=== PATIENT | female | born 1960 | race Caucasian/White ===

== ENCOUNTER 2017-10-10 15:53 | Emergency (ER) | payer MEDICAID ==
[~2017-10-10] VITALS: Ht 160 cm; Wt 81.6 kg
[~2017-10-10 15:53] MED LIST: LORA10TA7 PO
--- NOTE | 2017-10-10 23:13 | NUR ---
PT REPORTS FEELING "ACHEY ALL OVER" W/ COUGH/CONGESTION X3 DAYS
--- NOTE | 2017-10-11 01:07 | NUR ---
Pt seen by Dr. Fair. Pt stable for discharge per MD. Pt given ACI. Pt verbalized understanding of dc instructions. Pt ambulated out of ER with steady gait.
[2017-10-11 01:09] VITALS: BP 124/65
== END 2017-10-11 01:11 | disposition home or self-care (01) ==
LOC: ER 15:54
DX: J06.9 Acute upper respiratory infection, unspecified (principal); Z88.6 Allergy status to analgesic agent
CPT/HCPCS: A4663

== ENCOUNTER 2018-02-04 19:25 | Emergency (ER) | payer MEDICAID ==
[~2018-02-04] VITALS: Ht 152.4 cm; Wt 123.4 kg
--- NOTE | 2018-02-04 21:36 | NUR ---
DR. MACE AT BEDSIDE FOR MSE.
--- NOTE | 2018-02-04 21:50 | NUR ---
PT COMES TO ER W C/O NECK PAIN THAT STARTED TODAY. PT DENIES SOB/COUGH/CONGESTION. PT DENIES HEADACHE. PT DENIES CHEST PAIN.
--- NOTE | 2018-02-04 22:30 | NUR ---
PT RESTING COMFORTABLY IN BED WITH EYES CLOSED. NO ACUTE DISTRESS NOTED. VSS. AWAITING TEST RESULTS.
[2018-02-04 23:41] VITALS: BP 147/94
--- NOTE | 2018-02-04 23:42 | NUR ---
Patient discharged to home in stable conditon. Written and verbal after care instructions given. Patient verbalizes understanding of instructions. Patient left ER and walks in steady gait. VSS. No distress noted.
== END 2018-02-04 23:43 | disposition home or self-care (01) ==
LOC: ER 19:28
DX: K11.20 Sialoadenitis, unspecified (principal); Z88.6 Allergy status to analgesic agent; Z88.8 Allergy status to other drugs, medicaments and biological substances; Z79.899 Other long term (current) drug therapy
CPT/HCPCS: 70490; A4663

== ENCOUNTER 2019-08-29 20:36 | Emergency (ER) | payer MEDICAID ==
[~2019-08-29] VITALS: Ht 165.1 cm; Wt 103.9 kg
--- NOTE | 2019-08-29 20:44 | NUR ---
Dr. Adams at bedside for MSE.
[2019-08-29] MEDS ORDERED: LORAZEPAM 1 MG TABLET ONE (20:50)
--- NOTE | 2019-08-29 20:56 | NUR ---
Xray at bedside.
[2019-08-29] MEDS: LORAZEPAM 0.5 MG TABLET PO ONE (21:04)
[2019-08-29 21:26] LABS: BASOPHILS % (AUTO) 0.5 % (0.0-2.0); EOSINOPHILS # (AUTO) 0.1 K/uL (0.0-0.7); EOSINOPHILS % (AUTO) 0.9 % (0.0-7.0); HEMATOCRIT 40.6 % (37-47); HEMOGLOBIN 13.8 G/DL (12.0-16.0); LYMPHOCYTES # (AUTO) 3.8 K/UL (0.8-4.8); LYMPHOCYTES % (AUTO) 42.8 % (20.5-51.5); MEAN CORPUSCULAR HEMOGLOBIN 31.5 UUG (27.0-31.0); MEAN CORPUSCULAR HGB CONC 34 g/dL (32.0-37.0); MEAN CORPUSCULAR VOLUME 93.1 FL (81.0-99.0); MONOCYTES # (AUTO) 0.6 K/UL (0.1-1.30); MONOCYTES % (AUTO) 6.3 % (0.0-11.0); NEUTROPHILS # (AUTO) 4.4 K/UL (1.8-8.9); NEUTROPHILS % (AUTO) 49.5 % (38.5-71.5); PLATELET COUNT (AUTO) 313 K/UL (150-450); RED BLOOD CELL COUNT(AUTO) 4.36 MIL/UL (4.2-5.4)
--- NOTE | 2019-08-29 21:26 | NUR ---
Pt states she is feeling better.
[2019-08-29 21:51] LABS: BILIRUBIN,DIRECT 0.1 mg/dL (0.0-0.2); BILIRUBIN,TOTAL 0.3 mg/dL (0.1-1.0); CREATININE 0.8 mg/dL (0.6-1.3); POTASSIUM 3.9 mmol/L (3.5-5.1)
[2019-08-29 21:52] LABS: TOTAL PROTEIN, SERUM 8.1 g/dL (6.4-8.2)
--- NOTE | 2019-08-29 22:57 | NUR ---
Patient discharged to home in stable conditon. Written and verbal after care instructions given. Patient verbalizes understanding of instructions. Pt ambulated out of ER with steady gait, no acute signs of distress, VSS, all belongings taken.
[2019-08-29 23:00] VITALS: BP 138/91
== END 2019-08-29 23:01 | disposition home or self-care (01) ==
LOC: ER 20:36
DX: F41.9 Anxiety disorder, unspecified (principal); F41.0 Panic disorder [episodic paroxysmal anxiety]; Z88.6 Allergy status to analgesic agent; Z88.8 Allergy status to other drugs, medicaments and biological substances; Z79.899 Other long term (current) drug therapy
CPT/HCPCS: 36415; 70030-TC; 71045; 84443; 85025; 85730; 93005; A4663

== ENCOUNTER 2019-09-23 18:53 | Emergency (ER) | payer MEDICAID, OTHER ==
[~2019-09-23] VITALS: Ht 165.1 cm; Wt 127.0 kg
[2019-09-23] MEDS ORDERED: ATEN25TA PO (18:59)
[2019-09-23] MEDS ORDERED: ACETAMINOPHEN ES 500 MG TABLET ONE (19:57)
[2019-09-23] MEDS: ACETAMINOPHEN ES 500 MG TABLET PO ONE (19:57)
--- NOTE | 2019-09-23 20:13 | NUR ---
Patient discharged to home in stable conditon. Written and verbal after care instructions given. Patient verbalizes understanding of instructions. Patient ambulating with steady gait
--- NOTE | 2019-09-23 20:53 | NUR ---
[facility] in EDM - 09/23/19 at 2053 by COLE Patient discharged to home in stable conditon. Written and verbal after care instructions given. Patient verbalizes understanding of instructions. Patient ambulating with steady gait
[2019-09-23 20:54] VITALS: BP 138/80
== END 2019-09-23 20:13 | disposition home or self-care (01) ==
LOC: ER 18:55
DX: F41.9 Anxiety disorder, unspecified (principal); I10 Essential (primary) hypertension; Z88.6 Allergy status to analgesic agent; Z88.8 Allergy status to other drugs, medicaments and biological substances; Z79.899 Other long term (current) drug therapy
CPT/HCPCS: 93005; A4663; A9150

== ENCOUNTER 2020-04-30 15:49 | Emergency (ER) | payer OTHER ==
[~2020-04-30] VITALS: Ht 157.5 cm; Wt 98.4 kg
[~2020-04-30 15:49] MED LIST changes: +ATEN25TA PO
[2020-04-30] MEDS ORDERED: IV NORMAL SALINE 1000 ML BAG IV ONE (16:15)
[2020-04-30 16:34] LABS: BASOPHILS # (AUTO) 0.1 K/uL (0.0-8.0); BASOPHILS % (AUTO) 0.6 % (0.0-2.0); EOSINOPHILS % (AUTO) 0.3 % (0.0-7.0); HEMATOCRIT 40.8 % (31.2-41.9); HEMOGLOBIN 13.8 g/dL (10.9-14.3); LYMPHOCYTES # (AUTO) 2.7 K/uL (20.0-40.0); MEAN CORPUSCULAR HEMOGLOBIN 31.2 uug (24.7-32.8); MEAN CORPUSCULAR HGB CONC 34 g/dL (32.3-35.6); MEAN CORPUSCULAR VOLUME 92.3 fL (75.5-95.3); MONOCYTES # (AUTO) 0.5 K/uL (2.0-10.0); MONOCYTES % (AUTO) 4.4 % (0.0-11.0); NEUTROPHILS # (AUTO) 7.2 K/uL (1.8-8.9); NEUTROPHILS % (AUTO) 68.7 % (38.5-71.5); PLATELET COUNT (AUTO) 381 K/uL (179-408); RED BLOOD CELL COUNT(AUTO) 4.42 MIL/uL (3.63-4.92); WHITE BLOOD COUNT (AUTO) 10.5 K/uL (3.8-11.8)
[2020-04-30 16:42] LABS: CARBON DIOXIDE 28 mmol/L (21-32); CHLORIDE 106 mmol/L (98-107); CREATININE 0.8 mg/dL (0.6-1.3); GLUCOSE 129 mg/dL (74-106); POTASSIUM 3.6 mmol/L (3.5-5.1); UREA NITROGEN, BLOOD 10 mg/dL (7-18)
[2020-04-30] MEDS ORDERED: ACETAMINOPHEN ES 500 MG TABLET PO ONE (16:45)
[2020-04-30] MEDS ORDERED: ACETAMINOPHEN ES 500 MG TABLET ONE (16:45)
[2020-04-30 16:49] LABS: ALANINE AMINOTRANSFERASE 34 U/L (14-59); ALKALINE PHOSPHATASE 86 U/L (50-136); ASPARTATE AMINOTRANSFERASE 17 U/L (15-37); BILIRUBIN,DIRECT < 0.1 mg/dL (0.0-0.2); BILIRUBIN,TOTAL 0.2 mg/dL (0.2-1.0)
[2020-04-30 17:50] VITALS: BP 146/83
== END 2020-04-30 17:48 | disposition home or self-care (01) ==
LOC: ER 15:52
DX: R00.2 Palpitations (principal); R51 Headache; R00.0 Tachycardia, unspecified; Z90.49 Acquired absence of other specified parts of digestive tract; F41.9 Anxiety disorder, unspecified; I10 Essential (primary) hypertension
CPT/HCPCS: 36415; 70030-TC; 84443; 85025; 85730; 93005; A4663; A9150; J7030

== ENCOUNTER 2021-08-15 23:01 | Emergency (ER) | payer OTHER ==
[~2021-08-15] VITALS: Ht 160 cm; Wt 98.0 kg
--- NOTE | 2021-08-16 00:28 | NUR ---
ERMD into eval patient.
[2021-08-16] MEDS ORDERED: ACYC-108 PO (00:56)
[2021-08-16] MEDS ORDERED: HYDR453.3 TP ×2 (00:57→00:58)
--- NOTE | 2021-08-16 01:19 | NUR ---
Patient discharged to home in stable condition. Written and verbal after care instructions given. Patient verbalizes understanding of instructions. Stressed follow up or return to ER for worsening s/s.
[2021-08-16 01:21] VITALS: BP 149/81
== END 2021-08-16 01:22 | disposition home or self-care (01) ==
LOC: ER 23:01
DX: T78.40XA Allergy, unspecified, initial encounter (principal); X58.XXXA Exposure to other specified factors, initial encounter; L30.9 Dermatitis, unspecified; Z90.49 Acquired absence of other specified parts of digestive tract; Z88.6 Allergy status to analgesic agent; E66.9 Obesity, unspecified; Z68.38 Body mass index [BMI] 38.0-38.9, adult
CPT/HCPCS: A4663

== ENCOUNTER 2021-09-23 11:36 | Emergency (ER) | payer OTHER ==
[~2021-09-23] VITALS: Ht 160 cm; Wt 90.7 kg
[~2021-09-23 11:36] MED LIST changes: +ACYC-108 PO; +HYDR453.3 TP
[2021-09-23] MEDS ORDERED: BENZ200C53 PO (13:17)
--- NOTE | 2021-09-23 13:25 | NUR ---
Accounting Director assumes care; received patient for discharge by Dr Adams. Patient is AOx4, calm & breathing easily. Patient discharged in stable condition. Written and verbal after care instructions given to patient in [place]iny[place] and [place]. Patient said "I speak Uzbek.". Patient verbalized understanding and compliance of instructions. Stressed follow up with primary doctor or return to ER for worsening s/s. Copies of her tests' results today and medical allergies were provided per patient's request.
== END 2021-09-23 13:27 | disposition home or self-care (01) ==
LOC: ER 11:38
DX: B34.9 Viral infection, unspecified (principal); Z20.822 Contact with and (suspected) exposure to COVID-19; R03.0 Elevated blood-pressure reading, without diagnosis of hypertension; Z90.49 Acquired absence of other specified parts of digestive tract; E66.9 Obesity, unspecified; Z68.35 Body mass index [BMI] 35.0-35.9, adult; Z79.899 Other long term (current) drug therapy; Z88.6 Allergy status to analgesic agent
CPT/HCPCS: 87400; A4663

== ENCOUNTER 2023-08-11 10:32 | Emergency (ER) | payer OTHER ==
[~2023-08-11] VITALS: Ht 160 cm; Wt 90.7 kg
[~2023-08-11 10:32] MED LIST changes: +BENZ200C53 PO
[2023-08-11] MEDS ORDERED: CHLO473M5 PO (11:26)
[2023-08-11] MEDS ORDERED: PEG15DRO5 EACHEYE (11:26)
[2023-08-11] MEDS ORDERED: AZIT250T13 PO (11:26)
[2023-08-11 11:48] VITALS: BP 138/79; TEMP 98.5; O2SAT 98
== END 2023-08-11 11:48 | disposition home or self-care (01) ==
LOC: ER 10:32
DX: J02.9 Acute pharyngitis, unspecified (principal); Z90.49 Acquired absence of other specified parts of digestive tract; Z88.6 Allergy status to analgesic agent; Z88.8 Allergy status to other drugs, medicaments and biological substances; Z79.2 Long term (current) use of antibiotics; Z79.899 Other long term (current) drug therapy
CPT/HCPCS: A4606; A4663

== ENCOUNTER 2025-01-29 09:48 | Emergency (ER) | payer MEDICAID, OTHER ==
[~2025-01-29] VITALS: Ht 160 cm; Wt 90.7 kg
[~2025-01-29 09:48] MED LIST changes: +AZIT250T13 PO; +CHLO473M5 PO; +PEG15DRO5 EACHEYE
[2025-01-29 10:41] LABS: BASOPHILS # (AUTO) 0.1 K/UL (0.0-0.2); BASOPHILS % (AUTO) 0.8 % (0.0-2.0); EOSINOPHILS # (AUTO) 0.1 K/uL (0.0-0.7); EOSINOPHILS % (AUTO) 1.3 % (0.0-7.0); HEMATOCRIT 39.4 % (31.2-41.9); HEMOGLOBIN 13.4 g/dL (10.9-14.3); LYMPHOCYTES # (AUTO) 2.5 K/uL (0.8-4.8); LYMPHOCYTES % (AUTO) 33.8 % (20.5-51.5); MEAN CORPUSCULAR HEMOGLOBIN 31.7 uug (24.7-32.8); MEAN CORPUSCULAR HGB CONC 34 g/dL (32.3-35.6); MEAN CORPUSCULAR VOLUME 93.3 fL (75.5-95.3); MONOCYTES # (AUTO) 0.3 K/uL (0.1-1.30); MONOCYTES % (AUTO) 4.3 % (0.0-11.0); NEUTROPHILS # (AUTO) 4.4 K/uL (1.8-8.9); NEUTROPHILS % (AUTO) 59.8 % (38.5-71.5); PLATELET COUNT (AUTO) 347 K/uL (179-408); RED BLOOD CELL COUNT(AUTO) 4.23 MIL/uL (3.63-4.92); RED CELL DISTRIBUTION WIDTH 14.5 % (12.3-17.7); WHITE BLOOD COUNT (AUTO) 7.3 K/uL (3.8-11.8)
[2025-01-29] MEDS ORDERED: LORAZEPAM 0.5 MG TABLET ONE (10:41)
[2025-01-29] MEDS ORDERED: MECLIZINE HCL 25 MG TABLET ONE (10:41)
[2025-01-29] MEDS: LORAZEPAM 0.5 MG TABLET PO ONE (10:43)
[2025-01-29] MEDS: MECLIZINE HCL 25 MG TABLET PO ONE (10:43)
[2025-01-29 10:55] LABS: ALBUMIN 3.5 g/dL (3.4-5.0); BILIRUBIN,DIRECT 0.1 mg/dL (0.0-0.2); BILIRUBIN,TOTAL 0.4 mg/dL (0.2-1.0); CALCIUM 8.8 mg/dL (8.5-10.1); CREATININE 0.8 mg/dL (0.6-1.3); TOTAL PROTEIN, SERUM 7.5 g/dL (6.4-8.2)
[2025-01-29] MEDS ORDERED: MECL-159 PO (11:27)
[2025-01-29] MEDS ORDERED: LORA0.5T48 PO (11:27)
[2025-01-29] MEDS ORDERED: ACETAMINOPHEN 500 MG TABLET ONE (11:29)
[2025-01-29] MEDS: ACETAMINOPHEN 500 MG TABLET PO ONE (11:33)
[2025-01-29 11:42] VITALS: BP 137/76; O2SAT 98
== END 2025-01-29 11:43 | disposition home or self-care (01) ==
LOC: ER 09:51
DX: R42 Dizziness and giddiness (principal); F41.9 Anxiety disorder, unspecified; Z79.899 Other long term (current) drug therapy; Z88.6 Allergy status to analgesic agent; Z90.49 Acquired absence of other specified parts of digestive tract; Z87.09 Personal history of other diseases of the respiratory system; Z87.39 Personal history of other diseases of the musculoskeletal system and connective tissue; Z87.2 Personal history of diseases of the skin and subcutaneous tissue; Z86.59 Personal history of other mental and behavioral disorders
CPT/HCPCS: 36415; 85025; A4606; A4663; A9150; J8597